=== PATIENT | female | born 1955 | race Caucasian/White ===

== ENCOUNTER → 2021-03-26 08:02 | Outpatient (CLI) | payer OTHER, SELFPAY ==
[2021-03-26 12:01] LABS: COVID19 -Nasal RAPID Negative (Negative)
== END ==
PROVIDERS: Visit Provider Nurse Practitioner Family
DX: Z20.822 Contact with and (suspected) exposure to COVID-19 (principal); Z01.812 Encounter for preprocedural laboratory examination
CPT/HCPCS: 87635

== ENCOUNTER 2021-03-27 11:54 | Day surgery (SDC) | payer OTHER, SELFPAY ==
--- NOTE | 2021-03-27 | PATH_ITS ---
[facility] Accession Number: [id number] . 01 Material submitted: . PART A: duodenum - DUODNEUM PART B: stomach - ANTRUM PART C: esophagus - MID-ESOPHAGUS . 02 Diagnosis: A. Duodenum, Biopsy: Duodenal mucosa with no diagnostic abnormality. Negative for active inflammation, features of sprue, dysplasia, or malignancy. . B. Stomach, Antrum, Biopsy: Antral mucosa with mild chronic gastritis. Negative for Helicobacter by immunohistochemistry. Negative for intestinal metaplasia. Negative for dysplasia and malignancy. . C. Mid-Esophagus, Biopsy: Squamous epithelium with no diagnostic abnormality. Intraepithelial eosinophils are not increased. Negative for dysplasia and malignancy. MRV 03/30/2021 1515 Local . 02 Electronically signed: . Camila Miles MD, Pathologist NPI- [id number] . 01 Gross description: . Part A: DUODNEUM: Received in formalin are 4 fragment(s) of velázquez, soft tissue measuring 0.4 x 0.2 x 0.2 cm to 0.3 x 0.1 x 0.1 cm submitted entirely in 1 cassette(s) Part B: ANTRUM: Received in formalin are 2 fragment(s) of velázquez, soft tissue measuring 0.5 x 0.2 x 0.1 cm to 0.4 x 0.2 x 0.1 cm submitted entirely in 1 cassette(s) Part C: MID-ESOPHAGUS: Received in formalin are 3 fragment(s) of velázquez, soft tissue measuring 0.4 x 0.3 x 0.1 cm to 0.2 x 0.1 x 0.1 cm submitted entirely in 1 cassette(s) /DIEGO 03/28/2021 0333 Local . 02 Microscopic: . B. An immunohistochemical stain was performed to evaluate for Helicobacter organisms and is negative. The control stain showed appropriate reactivity. . * This test was developed and its performance characteristics determined by [facility]. It has not been cleared or approved by the U.S. Food and Drug Administration. The FDA has determined that such clearance or approval is not necessary. This test is used for clinical purposes. It should not be regarded as investigational or for research. . 02 Pathologist provided ICD-10: Z12.11 . 02 CPT . 293973, 044864, 682162, [id number] Performed at: 01 [facility] [address] [address], [place], [place] [id number] MD Dave Johnson MD Phone: [phone] Performed at: 02 [facility] [address] [place] [id number] MD Camila Miles MD Phone: [phone]
[2021-03-27 12:37] VITALS: BP 123/73; PULSE 66; RESP 16; TEMP 36.4; O2SAT 99; BMI 21.9
--- NOTE | 2021-03-27 12:44 | PM.HP.1 ---
History of Present Illness History of Present Illness Date Patient Seen: 03/27/21 Time Patient Seen: 12:44 Chief complaint: SDC Narrative: I reviewed my recent office note from February 12, 2021. No significant changes. Patient denies any specific change in bowel consistency but the pain described in my note persists as does her weight loss. Patient History Medical History Basal cell carcinoma Breast cyst Breast implant status Sony's thyroiditis IBS (irritable bowel syndrome) SVT (supraventricular tachycardia) Surgical History Hx of appendectomy S/P ACL repair Meds Home Medications and Allergies Home Medications Medication Instructions Recorded Confirmed Type Synthroid 50 mg PO DAILY 03/27/21 03/27/21 History metoprolol tartrate 50 mg PO PRN PRN 03/27/21 03/27/21 History Allergies Allergy/AdvReac Type Severity Reaction Status Date / Time hydroxychloroquine Allergy Intermediate Rash Verified 03/27/21 12:30 metronidazole Allergy Rash Verified 03/27/21 12:29 Review of Systems Review of Systems ROS: Yes All systems reviewed with the patient and are negative except as otherwise documented Exam Const General: cooperative and comfortable Orientation: alert HENAL Head: normocephalic Ears: external ears normal Nose: external nose normal Face and sinus: normal facial exam Mouth: oral mucosae normal Eyes General: appearance normal, both eyes and all related structures Neck Neck: normal visual inspection Chest Chest: normal inspection of the chest Resp Effort & Inspection: normal respiratory effort Auscultation: clear to auscultation bilaterally Cardio Rate: regular rate Rhythm: regular rhythm Heart Sounds: no murmurs GI Inspection: normal to inspection Palpation: soft and No tender Auscultation: normal bowel sounds Skin General: no rashes or lesions noted and No jaundice Neuro General: patient alert and moves all extremities Cognition: normal cognition Speech: speech normal Extrem General: no pedal edema Psych Appearance: grossly normal Assessment & Plan Assessment & Plan narrative: Abdominal pain, dysphagia, weight loss. Diagnostic EGD and colonoscopy are pursued Time Spent With Patient Critical Care time: I spent a total of [] minutes of critical care time on this patient's care today; this time is exclusive of procedural time.
[2021-03-27] MEDS: SODIUM CHLORIDE 0.9% 1,000 ML 84 ML IV (12:46)
--- NOTE | 2021-03-27 12:46 | PM.PREOP ---
Pre-operative Note COVID-19 COVID-19 status: Negative Result date/Date tested (Pos, Neg/Pending): 03/26/21 Interval Note History & Physical reviewed/Exam performed by Physician: Yes Changes to H&P: No ASA Class (for procedural sedation): II
--- NOTE | 2021-03-27 13:36 | PM.OP.EC ---
Operative Date/Time/Diagnoses Date of procedure: 03/27/21 Time of procedure: 13:37 Pre-op diagnosis: Weight loss abdominal pain dysphagia Post-op diagnosis: same Procedure & Clinicians Study performed: EGD with biopsies and a colonoscopy Same procedure as scheduled: Yes Indications: Weight loss abdominal pain dysphagia Surgeon: Bryan Camacho Procedure Notes SCOAP/Timeout: Done Procedure in detail: After the risks and benefits were explained, written and verbal informed consent was obtained. The patient was brought into the procedure room and placed into the left lateral decubitus position. Please see nurse newspaper managing editor note for sedation details. The scope was introduced into the mouth through the bite block and advanced under direct visualization to the 2nd portion of the duodenum. The scope was slowly withdrawn carefully examining the mucosa for any defects or lesions. Retroflexed views were accomplished in the stomach. The stomach was decompressed, the scope was then removed from the patient who tolerated the procedure well. The patient was then turned around digital rectal examination accomplished mild internal nonbleeding nonthrombosed hemorrhoids noted. The scope was introduced into the rectum and advanced to the cecum as identified by the appendiceal orifice and ileocecal valve. The scope was then advanced up into the terminal ileum the scope was slowly withdrawn to carefully examine the mucosa for any defects or lesions. Multiple direct views were made through the dentate line for exclusion of pathology the colon was decompressed scope removed from the patient who tolerated the procedure well. Bowel prep adequate Pediatric colonoscope Scope withdrawal time: 8 minutes Sedation minutes: 29 Complications: none Impression: 1. Duodenum: this was visually normal from the bulb through to the 2nd portion. Random biopsies were taken from the 2nd portion for exclusion of sprue. 2. Stomach: No ulcers mass lesions or inflammatory features identified throughout. No outlet obstruction. Minimal gastropathy appreciated in the antrum region and therefore random biopsies were taken for exclusion of Helicobacter or other pathology. Retroflexed views of the LES were otherwise unremarkable. 3. Esophagus: The squamocolumnar junction correlated with the top of the gastric folds. The GE junction was at approximately 44 cm from the incisors. There was no evidence of any stricture Schatzki's nor any inflammation. Random mid esophageal biopsies were acquired for exclusion of eosinophilic esophagitis in light of her dysphagia symptoms. 4. Colon: No significant polyps mass lesions or inflammatory features identified throughout. Patient had grade 1 to grade 2 internal nonbleeding nonthrombosed hemorrhoids. 5. Terminal ileum: This was visually normal. Endoscopic diagnosis 1. Minimal gastropathy 2. Otherwise visually unremarkable EGD 3. Grade 1 to grade 2 internal hemorrhoids 4. Otherwise visually unremarkable colonoscopy and terminal ileoscopy. Post-procedure Recommendations: Colonscopy in 10 years Plan for aftercare: 1. Await histopathology 2. Repeat colonoscopy 10 years time sooner should symptoms warrant an earlier exam. 3. Continue with planned vascular surgery follow-up in light of the pelvic congestion syndrome identified on recent imaging. Disposition: PACU
[2021-03-27 13:42] VITALS: BP 103/58; PULSE 70; RESP 17; TEMP 36.8; O2SAT 99
[2021-03-27 14:05] VITALS: BP 114/64; PULSE 60; RESP 20; O2SAT 99
--- NOTE | 2021-03-27 14:09 | SUR.PHASEI ---
Gave report to Argentina Swanson RN for transfer to phase II , pt transferred w vss, in stable condition
[2021-03-27 14:17] VITALS: BP 126/71; PULSE 80; RESP 16; TEMP 36.7; O2SAT 97
== END 2021-03-27 14:18 | disposition home or self-care (01) ==
PROVIDERS: PCP Family Medicine; Referring Provider Internal Medicine Gastroenterology; Visit Provider Internal Medicine Gastroenterology
PROC: 0DJ08ZZ Inspection of Upper Intestinal Tract, Via Natural or Artificial Opening Endoscopic (ICD-10-PCS; CPT 43235; principal; 2021-03-27 13:00)
PROC: 0DJD8ZZ Inspection of Lower Intestinal Tract, Via Natural or Artificial Opening Endoscopic (ICD-10-PCS; CPT 45378; 2021-03-27 13:00)
DX: R10.32 Left lower quadrant pain (principal); R63.4 Abnormal weight loss; R13.10 Dysphagia, unspecified; Z86.16 Personal history of COVID-19; K64.1 Second degree hemorrhoids; K31.9 Disease of stomach and duodenum, unspecified; K29.50 Unspecified chronic gastritis without bleeding
CPT/HCPCS: 43239; 45378; J2704